=== PATIENT | male | born 1970 | race Two or more races ===

== ENCOUNTER 2019-02-06 18:25 | Emergency (ER) | payer MEDICAID ==
[~2019-02-06] VITALS: Ht 167.6 cm; Wt 79.8 kg
[2019-02-06 18:31] VITALS: Ht 167.6 cm; Wt 79.8 kg
[2019-02-06 19:22] LABS: BASOPHIL % 0.3 % (0-2); PLATELET COUNT 190 x10^3mcL (130-400); RED CELL DISTRIBUTION WIDTH 13.7 % (11.5-14.5)
[2019-02-06 19:34] VITALS: BP 165/91
[2019-02-06 19:40] LABS: CALCIUM 8.8 mg/dL (8.5-10.1); CARBON DIOXIDE 24.5 mmol/L (21-32); CHLORIDE SERUM 108 mmol/L (98-107); GFR1 > 60 mL/min; GLUCOSE SERUM 122 mg/dL (74-106); SODIUM SERUM 143 mmol/L (136-145)
[2019-02-06 19:45] LABS: ALKALINE PHOSPHATASE 68 U/L (46-116); ALT/SGPT 36 U/L (16-63); AST/SGOT 19 U/L (15-37); BILIRUBIN TOTAL 0.4 mg/dL (0.20-1.00); TOTAL PROTEIN, SERUM 7.3 g/dL (6.4-8.2)
[2019-02-06 19:46] LABS: ALBUMIN 3.2 g/dL (3.4-5.0)
== END 2019-02-06 19:30 | disposition short-term general hospital (02) ==
LOC: ED 18:25
PROVIDERS: Emergency Medicine
DX: I21.3 ST elevation (STEMI) myocardial infarction of unspecified site (principal)
CPT/HCPCS: 36415; 83880; 85378; Q0092